=== PATIENT | male | born 1990 | race Caucasian/White ===

== ENCOUNTER 2020-01-24 16:11 | Inpatient (IN) ==
[2020-01-24 17:47] LABS: Bacteria,Urine None Seen per hpf (None-Few); Clarity,Urine Clear (Clear); Hyaline Casts,Urine None Seen per lpf (None-Few); Ketones,Urine >=160 mg/dL (Negative); RBC,Urine 0-3 per hpf (0-3); Squamous Epithelial Cell,Urine Moderate per lpf (None-Few); Urobilinogen,Urine Normal (Normal)
[2020-01-24 17:50] LABS: Amphetamine Screen,Urine Positive ng/mL (Cutoff=1000); Barbiturate Screen,Urine Negative ng/mL (Cutoff=200); Benzodiazepines Screen,Urine Negative ng/mL (Cutoff=200); Cannabinoid Screen,Urine Negative ng/mL (Cutoff = 50); Cocaine Screen,Urine Negative ng/mL (Cutoff= 300); Opiate Screen,Urine Negative ng/mL (Cutoff=300); Phencyclidine Screen,Urine Negative ng/mL (Cutoff=25)
[2020-01-24 17:58] LABS: Bilirubin,Urine Moderate (Negative); Blood,Urine Negative (Negative); Color,Urine Dark Yellow (Yellow); Glucose,Urine (UA) Normal (Normal); Protein,Urine Trace mg/dL (Neg-Trace)
[2020-01-24 17:59] LABS: Leukocyte Esterase,Urine Negative (Negative); Nitrite,Urine Negative (Negative)
[2020-01-24 18:38] LABS: Basophils % 0.4 %; Eosinophils # 0.2 K/mcL (0.0-0.6); Hematocrit 47.4 % (37.5-50.1); Hemoglobin 16.7 g/dL (12.9-16.9); Immature Granulocytes % 0.1 % (0-4); Lymphocytes # 3.1 K/mcL (0.6-4.6); Mean Corpuscular HGB Conc 35.2 g/dL (31.6-35.5); Mean Corpuscular Hemoglobin 31.8 pg (28.0-33.3); Mean Corpuscular Volume 90.3 fL (83.0-100.0); Mean Platelet Volume 10.2 fL (9.4-12.4); Monocytes # 0.7 K/mcL (0.0-1.3); Monocytes % 8.9 %; Neutrophils # 3.9 K/mcL (1.6-8.9); Platelet Count 260 K/mcL (140-400); Red Blood Count 5.25 M/mcL (4.19-5.50); Red Cell Distribution Width 12.5 % (11.5-14.5); Segmented Neutrophils % 48.6 %; White Blood Count 8.1 K/mcL (4.3-11.1)
[2020-01-24 19:47] LABS: Acetaminophen < 10 mcg/mL (10-20); BUN/Creatinine Ratio 14 (6-26); Blood Urea Nitrogen 10 mg/dL (6-20); Calcium 8.9 mg/dL (8.6-10.3); Carbon Dioxide 22 mEq/L (23-29); Chloride 104 mEq/L (98-107); Ethanol < 10 mg/dL (Less than 10); Glucose 156 mg/dL (70-105); Osmolality,Calculated 288 (280-300); Potassium 3.8 mEq/L (3.5-5.1); Salicylate < 2.5 mg/dL (15.0-30.0); Sodium 138 mEq/L (136-145); eGFR For African Americans > 60 (> 60); eGFR For Non-African Americans > 60 (> 60)
[2020-01-24] MEDS ORDERED: Ibuprofen 400 MG TABLET PO PRN (21:32)
[2020-01-24] MEDS ORDERED: hydrOXYzine pamoate 25 MG CAPSULE PO PRN (21:34)
[2020-01-24] MEDS ORDERED: Haloperidol Lactate 5 MG/ML VIAL IM PRN (21:34)
[2020-01-24] MEDS ORDERED: *HR* LORazepam 1 MG TABLET PO PRN (21:34)
[2020-01-24] MEDS ORDERED: *HR* LORazepam 2 MG/ML VIAL IM PRN (21:34)
[2020-01-24] MEDS ORDERED: Mag Hydrox/Al Hydrox/Simeth 30 ML UDC PO PRN (21:34)
[2020-01-24] MEDS ORDERED: traZODone 50 MG TABLET PO PRN (21:34)
[2020-01-24] MEDS ORDERED: MOM Conc 10 ML UD.LIQ PO PRN (21:34)
[2020-01-24] MEDS ORDERED: haloperidoL 5 MG TABLET PO PRN (21:34)
[2020-01-25] MEDS ORDERED: Neosporin OINT 15 GM TUBE TP PRN (17:14)
[2020-01-25] MEDS: *HR* Buprenorphine HCl 8 MG TAB.SUBL SL SCH (18:50)
[2020-01-26] MEDS: *HR* Buprenorphine HCl 8 MG TAB.SUBL SL SCH (08:43)
[2020-01-26 09:13] VITALS: BP 134/73
[2020-01-26] MEDS ORDERED: Td (TENIVAC) Vaccine 0.5 ML VIAL IM ONE (12:03)
[2020-01-26] MEDS ORDERED: *HR* Buprenorphine HCl 2 MG SUBLINGUAL TABLET SL ONE (12:10)
== END 2020-01-26 16:25 | disposition home or self-care (01) | DRG 751 ==
LOC: 1ANU 16:11 → EMEROOARM 16:11 → 1ANU 22:02
PROVIDERS: ADMIT Psychiatry & Neurology Psychiatry; ATTEND Psychiatry & Neurology Psychiatry